=== PATIENT | male | born 1975 | race Two or more races ===

== ENCOUNTER 2020-01-03 16:14 | Inpatient (IN) | payer OTHER ==
[~2020-01-03] VITALS: Ht 167.6 cm; Wt 104.5 kg
--- NOTE | 2020-01-03 16:53 | NUR ---
PT TO ROOM 36 W/ C/O LOSS OF SMELL/TASTE, FATIGUE, AND SOB. PT NOTED TO HAVE DRY NON-PRODUCTIVE COUGH. MONITORS APPLIED. PT WAS IN TGHE 80'S RA IN TRIAGE. CURRENTLY ON 2L NC SATING MID . PT RESTING ON GURHUAN. NADN. VSS. TEMP NOTED TO BE 103.3 IN TRIAGE. Addendum: 01/03/20 at 1851 by BNICHOLS +COVID.
[2020-01-03] MEDS ORDERED: ACETAMINOPHEN 500 MG TABLET ONE (17:17)
[2020-01-03] MEDS ORDERED: SODIUM CHLORIDE 0.9% 1,000ML IVBOLUS ONE (17:30)
[2020-01-03] MEDS ORDERED: ACETAMINOPHEN 500 MG TABLET PO ONE (17:30)
[2020-01-03 17:45] LABS: ALANINE AMINOTRANSFERASE 44 U/L (12-78); ALBUMIN 3.4 g/dL (3.4-5.0); ANION GAP 7 mmol/L (5-15); CALCIUM 8.6 mg/dL (8.5-10.1); CHLORIDE 102 mmol/L (98-107); CREATININE 0.84 mg/dL (0.7-1.3)
[2020-01-03 17:52] LABS: ALKALINE PHOSPHATASE 94 U/L (45-117); BILIRUBIN,TOTAL 0.5 mg/dL (0.2-1.0); TOTAL PROTEIN 7.7 g/dL (6.4-8.2)
[2020-01-03 17:57] LABS: BASOPHILS % (AUTO) 0 % (0-1); EOSINOPHILS % (AUTO) 0 % (1-7); LYMPHOCYTES % (AUTO) 13 % (22-44); MEAN CORPUSCULAR HEMOGLOBIN 29.2 pg (27.5-34.5); MEAN CORPUSCULAR HGB CONC 33.1 g/dL (33.2-36.2); MEAN PLATELET VOLUME 7.6 fL (7.4-10.4); MONOCYTES % (AUTO) 7 % (2-9); NEUTROPHILS % (AUTO) 80 % (42-75); PLATELET COUNT 320 x10^3/uL (130-400); RED BLOOD COUNT 4.65 x10^6/uL (4.38-5.82); RED CELL DISTRIBUTION WIDTH 13.4 % (9.4-14.8)
[2020-01-03 17:58] LABS: MD NO
--- NOTE | 2020-01-03 18:26 | NUR ---
PT RESTING ON GURNEY. NADN. MALONEY.
--- NOTE | 2020-01-03 18:46 | NUR ---
BEDSIDE REPORT FROM MARANDA FLORIAN, PT CARE TRANSFERRED AT THIS TIME.
--- NOTE | 2020-01-03 18:50 | NUR ---
SPOKE W/ ERP DR. SHAVER IN [facility] TO PT'S TEMP AT 101.7 ONE HR AFTER RECEIVING 1GM TYLENOL. PER ERP NO NEED TO GIVE ANOTHER ANTIPYRETIC AT THIS TIME PT IS TRENDING DOWN.
--- NOTE | 2020-01-03 18:57 | NUR ---
REPORT GIVEN TO BIA HARDEN RN.
--- NOTE | 2020-01-03 19:30 | NUR ---
PT NAD, RESTING ON GURNEY, APPEARS COMFORTABLE, CALL LIGHT ON LAP, DENIES ADDITIONAL NEEDS, PT RA SAT 88-89%, HIGH 90S ON 2L NC. IVNEET MCHUGH AWARE, PLAN TO ADMIT PT TO HOSPITAL AT THIS TIME. LOLATM.
[2020-01-03] MEDS: ENOXAPARIN 40 MG/0.4 ML SQ SCH (20:30)
[2020-01-03] MEDS ORDERED: PHARMACY MAY ADJ FOR RENAL FX MC PRN (20:30)
[2020-01-03] MEDS ORDERED: morphine SULFATE 10 MG/ML, 1ML IVPush PRN (20:30)
[2020-01-03] MEDS ORDERED: ZOLPIDEM 5MG TABLET PO PRN (20:30)
[2020-01-03] MEDS ORDERED: METHOCARBAMOL 500 MG TABLET PO PRN (20:30)
[2020-01-03] MEDS ORDERED: ENALAPRILAT 1.25 MG/ML, 2ML IVPush PRN (20:30)
[2020-01-03] MEDS ORDERED: HYDROcodone/APAP 5/325 TABLET PO PRN (20:30)
[2020-01-03] MEDS: AZITHROMYCIN 500 MG TABLET PO SCH (20:30)
[2020-01-03] MEDS ORDERED: PROCHLORPERAZINE 5 MG/ML, 2ML IVPush PRN (20:30)
[2020-01-03] MEDS ORDERED: DOCUSATE 100 MG CAPSULE PO PRN (20:30)
[2020-01-03] MEDS ORDERED: GUAIFENESIN/DM 200-20MG, 10ML UDC PO PRN (20:30)
[2020-01-03] MEDS ORDERED: ACETAMINOPHEN 325 MG TABLET PO PRN (20:30)
[2020-01-03] MEDS: DEXAMETHASONE 1 MG TABLET PO SCH (20:30)
--- NOTE | 2020-01-03 20:31 | NUR ---
PT MOVED TO HOSPITAL BED, NAD, NO CHANGE IN CONDITION, DENIES ADDITIONAL NEEDS, PT PROVIDED MEAL FOR COMFORT, WATCHING TV, EVEN AND UNLABORED RESPIRATIONS, WCTM.
[2020-01-03] MEDS ORDERED: CEFTRIAXONE PMX 1GM/50ML 50 ML ONE (21:21)
[2020-01-03] MEDS ORDERED: DEXAMETHASONE 4 MG TABLET ONE (21:21)
[2020-01-03] MEDS ORDERED: ENOXAPARIN 40 MG/0.4 ML ONE (21:21)
[2020-01-03] MEDS ORDERED: ASCORBIC ACID 500 MG TABLET ONE (21:22)
[2020-01-03] MEDS ORDERED: AZITHROMYCIN 250 MG TABLET ONE (21:22)
[2020-01-03] MEDS: CEFTRIAXONE PMX 1GM/50ML 50 ML IV SCH (21:24)
[2020-01-03] MEDS: ASCORBIC ACID 500 MG TABLET PO SCH (21:24)
--- NOTE | 2020-01-03 21:59 | NUR ---
PT NAD, FINISHED EATING MEAL, DENIES ADDITIONAL NEEDS, LIGHTS DIMMED FOR COMFORT, CALL LIGHT ON LAP, APPEARS COMFORTABLE, EVEN AND UNLABORED RESPIRATIONS. WCTM. WAITING FOR ADMIT BED
--- NOTE | 2020-01-03 22:31 | NUR ---
PT SON, HERBER DROPPED OF PHONE FOR PT. MADI PHONE NUMBER IS [phone]. PT RESTING ON GURNEY. NAD, APPEARS COMFORTABLE, NO CHANGE IN CONDITION, WAITING FOR ADMIT BED. WCTM.
--- NOTE | 2020-01-03 23:49 | NUR ---
PT NAD, NO CHANGE IN CONDITION, EYES CLOSED, EVEN UNLABORED RESPIRATIONS, WCTM. WAITING ON ADMIT BED.
--- NOTE | 2020-01-04 00:13 | NUR ---
Task RN: pt resting comfortably. Visible chest rise/fall noted. VSS stable. Remains on continuous tele/O2 monitoring. Bed low, side rails up, call schafer within reach
--- NOTE | 2020-01-04 01:01 | NUR ---
pt resting on hospital bed, NAD, eyes closed, even respirations, waiting for admit bed, wctm. vss
--- NOTE | 2020-01-04 03:42 | NUR ---
PT RESTING ON HOSPITAL BED, EYES CLOSED, VSS, WCTM. WAITING FOR ADMIT BED.
--- NOTE | 2020-01-04 04:46 | NUR ---
NO CHANGE IN CURRENT CONDITION. NAD. WCTM. WAITING FOR ADMIT BED.
[2020-01-04 05:22] LABS: BASOPHILS % (AUTO) 0 % (0-1); EOSINOPHILS % (AUTO) 0 % (1-7); LYMPHOCYTES % (AUTO) 10 % (22-44); MEAN CORPUSCULAR HEMOGLOBIN 29.1 pg (27.5-34.5); MEAN CORPUSCULAR HGB CONC 32.9 g/dL (33.2-36.2); MEAN PLATELET VOLUME 7.3 fL (7.4-10.4); MONOCYTES % (AUTO) 5 % (2-9); NEUTROPHILS % (AUTO) 85 % (42-75); PLATELET COUNT 341 x10^3/uL (130-400); RED BLOOD COUNT 4.49 x10^6/uL (4.38-5.82); RED CELL DISTRIBUTION WIDTH 13.5 % (9.4-14.8)
[2020-01-04 05:30] LABS: CHLORIDE 105 mmol/L (98-107)
[2020-01-04 05:41] LABS: ANION GAP 8 mmol/L (5-15); CREATININE 0.79 mg/dL (0.7-1.3)
[2020-01-04 05:57] LABS: MD NO
--- NOTE | 2020-01-04 06:26 | NUR ---
pt resting on hospital bed, NAD, eyes closed, even respirations, urinal emptied, waiting for admit bed, wctm. vss
--- NOTE | 2020-01-04 06:50 | NUR ---
REPORT FROM BRANDON
[2020-01-04] MEDS: DEXAMETHASONE 1 MG TABLET PO SCH (07:30)
[2020-01-04] MEDS ORDERED: DEXAMETHASONE 4 MG TABLET ONE (07:41)
[2020-01-04] MEDS ORDERED: AZITHROMYCIN 250 MG TABLET ONE (07:41)
[2020-01-04] MEDS ORDERED: ZINC SULFATE 220 MG CAPSULE ONE (07:41)
[2020-01-04] MEDS ORDERED: ASCORBIC ACID 500 MG TABLET ONE ×2 (07:41→21:03)
[2020-01-04] MEDS: ZINC SULFATE 220 MG CAPSULE PO SCH (08:19)
[2020-01-04] MEDS: ASCORBIC ACID 500 MG TABLET PO SCH ×2 (08:19→21:14)
[2020-01-04] MEDS: AZITHROMYCIN 500 MG TABLET PO SCH (08:20)
--- NOTE | 2020-01-04 08:56 | NUR ---
PT MEDICATED PER ORDERS, PROVIDED BREAKFAST. NO OTHER NEEDS. VSS
--- NOTE | 2020-01-04 13:19 | NUR ---
BREAK RN: PT RESTING IN [facility]. VITAL SIGNS WITHIN NORMAL LIMITS.
--- NOTE | 2020-01-04 14:30 | NUR ---
PT RESTING, GAVE FAMILY AN UPDATE IN THE LOBBY, PT AWARE OF FAMILY VISIT.
--- NOTE | 2020-01-04 15:37 | NUR ---
PT RESTING, VSS, NO CO OF PAIN, SOB OR CP, CALL LIGHT IN REACH.
--- NOTE | 2020-01-04 18:17 | NUR ---
PT GIVEN MEAL TRAY, VSS. PT VOIDED 800 ML MARIAN. PT NOT IN RESP DISTRESS.
--- NOTE | 2020-01-04 18:48 | NUR ---
REPORT TO CASIE
--- NOTE | 2020-01-04 19:14 | NUR ---
REPORT FROM ASHA FLORIAN. PT SLEEPING. VSS. CALL LIGHT IN REACH
[2020-01-04] MEDS ORDERED: CEFTRIAXONE PMX 1GM/50ML 50 ML ONE (21:03)
[2020-01-04] MEDS ORDERED: ENOXAPARIN 40 MG/0.4 ML ONE (21:03)
[2020-01-04] MEDS: ENOXAPARIN 40 MG/0.4 ML SQ SCH (21:14)
[2020-01-04] MEDS: CEFTRIAXONE PMX 1GM/50ML 50 ML IV SCH (21:14)
--- NOTE | 2020-01-04 21:22 | NUR ---
pt medicated and has no needs at this time. vss. call light in reach
[2020-01-04 23:26] VITALS: BP 118/70
[2020-01-05 02:00] VITALS: BP 118/72
[2020-01-05 05:49] LABS: ALANINE AMINOTRANSFERASE 57 U/L (12-78); ALBUMIN 3.1 g/dL (3.4-5.0); ANION GAP 4 mmol/L (5-15); CHLORIDE 106 mmol/L (98-107); CREATININE 0.76 mg/dL (0.7-1.3)
[2020-01-05 05:52] LABS: ALKALINE PHOSPHATASE 89 U/L (45-117); BILIRUBIN,TOTAL 0.4 mg/dL (0.2-1.0); TOTAL PROTEIN 7.6 g/dL (6.4-8.2)
[2020-01-05 06:02] LABS: BASOPHILS % (AUTO) 0 % (0-1); EOSINOPHILS % (AUTO) 0 % (1-7); LYMPHOCYTES % (AUTO) 20 % (22-44); MEAN CORPUSCULAR HEMOGLOBIN 29.5 pg (27.5-34.5); MEAN CORPUSCULAR HGB CONC 33.2 g/dL (33.2-36.2); MEAN PLATELET VOLUME 7.4 fL (7.4-10.4); MONOCYTES % (AUTO) 12 % (2-9); NEUTROPHILS % (AUTO) 68 % (42-75); PLATELET COUNT 423 x10^3/uL (130-400); RED BLOOD COUNT 4.51 x10^6/uL (4.38-5.82); RED CELL DISTRIBUTION WIDTH 13.6 % (9.4-14.8)
[2020-01-05 06:23] LABS: MD NO
[2020-01-05 07:28] VITALS: BP 115/75
[2020-01-05] MEDS: DEXAMETHASONE 4 MG TABLET PO SCH (09:05)
[2020-01-05] MEDS: ZINC SULFATE 220 MG CAPSULE PO SCH (09:05)
[2020-01-05] MEDS: ASCORBIC ACID 500 MG TABLET PO SCH ×2 (09:05→20:45)
[2020-01-05] MEDS: AZITHROMYCIN 500 MG TABLET PO SCH (09:05)
[2020-01-05 13:49] VITALS: BP 118/73
[2020-01-05 19:34] VITALS: BP 121/70
[2020-01-05] MEDS: ENOXAPARIN 40 MG/0.4 ML SQ SCH (20:45)
[2020-01-05] MEDS: CEFTRIAXONE PMX 1GM/50ML 50 ML IV SCH (20:45)
[2020-01-06 01:18] VITALS: BP 115/74
[2020-01-06 06:43] VITALS: BP 125/78
[2020-01-06] MEDS: AZITHROMYCIN 500 MG TABLET PO SCH (09:07)
[2020-01-06] MEDS: ZINC SULFATE 220 MG CAPSULE PO SCH (09:07)
[2020-01-06] MEDS: ASCORBIC ACID 500 MG TABLET PO SCH (09:08)
[2020-01-06] MEDS: DEXAMETHASONE 4 MG TABLET PO SCH (09:08)
[2020-01-06 12:06] VITALS: BP 123/67
[2020-01-06] MEDS ORDERED: DEXA4TAB66 PO (13:31)
[2020-01-06] MEDS ORDERED: ASCO500T9 PO (13:31)
[2020-01-06] MEDS ORDERED: CEFD300C37 PO (13:31)
[2020-01-06] MEDS ORDERED: AZIT500T10 PO (13:31)
[2020-01-06] MEDS ORDERED: ACID1TAB7 PO (13:31)
[2020-01-06] MEDS ORDERED: ZINC220C7 PO (13:31)
[2020-01-06] MEDS ORDERED: LACTOBACILLUS CHEW TABLET PO SCH (16:00)
== END 2020-01-06 16:16 | disposition home or self-care (01) | DRG 871 ==
LOC: ED 18:41 → EDIP 19:45 → 4EST 01-04 22:56
PROVIDERS: ADMIT Internal Medicine; ATTEND Internal Medicine
DX: A41.89 Other specified sepsis (principal); J12.89 Other viral pneumonia; J96.01 Acute respiratory failure with hypoxia; U07.1 COVID-19; E87.1 Hypo-osmolality and hyponatremia; D64.9 Anemia, unspecified; E66.9 Obesity, unspecified; Z68.38 Body mass index [BMI] 38.0-38.9, adult; Z87.891 Personal history of nicotine dependence
CPT/HCPCS: 36415; 71045; 80048; 80053; 82728; 83605; 83615; 83735; 84145; 85025; 86140; 87040; 87635; 93005; 96360; 96361; 99291; G0378; J0696; J1650; J7030